=== PATIENT | female | born 1955 | race Caucasian/White ===

== ENCOUNTER 2022-10-13 12:05 | Outpatient (RCR) | payer MEDICARE, BC, SELFPAY ==
[2022-10-13 15:34] VITALS: BP 133/28; PULSE 86; RESP 16; O2SAT 98
--- NOTE | 2022-10-13 15:37 | PC.NURSE ---
Pt arrived for dressing change to left axilla, alert and oriented. Stated she has recently went to [facility] for care. Pt was able to undress and place on an gown, laying in bed. Dressing removed, gauze secured with tape. Small piece of packing ribbon noted on gauze with light yellow purulent drainage. Cleansed site with saline and pat dry. Surrounding tissue is dry and intact, firm, tender. Using cotton tip applicator, packed wound with 1/4 inch tape 1.5 inches in length. Pt tolerated with minimal pressure reported. Secured with gauze and tape. Pt dressed self and security assisted via wheel chair for discharge.
[2022-10-14 13:10] VITALS: BP 112/68; PULSE 88; RESP 18; TEMP 36.8; O2SAT 90
== END 2022-10-14 14:00 | disposition home or self-care (01) ==
LOC: INF 12:05
PROVIDERS: PCP Family Medicine
DX: L02.419 Cutaneous abscess of limb, unspecified (principal); N61.0 Mastitis without abscess

== ENCOUNTER 2022-10-22 11:00 | Outpatient (RCR) | payer MEDICARE, BC, SELFPAY ==
[2022-10-15 12:50] VITALS: BP 154/77; PULSE 85; RESP 20; TEMP 36.8; O2SAT 92
--- NOTE | 2022-10-15 13:51 | PC.NURSE ---
1250: Pt. brought to [facility] via w/c per. security personnel. Assisted pt. to bed. Relays having bad hips and unable to walk far distances. Privacy provided. Shirt and bra removed. Dressing to left outer breast in place and soiled with mod. amount serous drainage. Dressing removed. Skin red and tender around packed wound. Approximately 1.5 serous covered packing removed from wound. Wound irrigated with saline. Using sterile technique, wound packed with approximately 1.5 sterile 1 dry gauze packing. Pt. tolerated with minimal c/o discomfort. 4x4 applied and secured with paper tape. 1319: Assisted pt. back to w/c. Pt. taken to car per. volunteer and d/c'd to home.
[2022-10-16 12:42] VITALS: BP 112/66; PULSE 89; RESP 20; TEMP 36.7; O2SAT 92
--- NOTE | 2022-10-16 12:42 | PC.NURSE ---
1242: Pt. to [facility] via w/c accompanied by volunteer. Assisted to bed. Dressing to left lat. breast with mod. amount serous drainage. Old dressing removed. Packing to wound removed. Saturated with serous, yellow/pale green drainage. Wound depth re-measured at 5cm. Wound bed flushed with saline. Using sterile technique, wound packed 1 plain packing. Pt. tolerated with minimal c/o discomfort. Covered with sterile 4x4, secured with paper tape. Pt. denies needs. Pt. taken to car via w/c per this RN. D/c'd to home.
[2022-10-17 13:10] VITALS: BP 146/73; PULSE 85; RESP 20; TEMP 36.3; O2SAT 92
--- NOTE | 2022-10-17 13:10 | PC.NURSE ---
Pt. brought to [facility] via w/c from car per this RN. Pt. assisted on to bed. Dressing to left lat. breast covered with serous drainage. Dressing and 2.5 of packing removed. Packing with same drainage. Depth of wound unchanged. Site flushed with saline. Using sterile technique, wound packed with 1 plain packing and covered with sterile 4x4 and secured with paper tape. Pt. tolerated with minimal c/o. Pt. taken back to car via w/c per this RN and d/c'd to home.
[2022-10-18 14:00] VITALS: BP 135/68; PULSE 83; RESP 22; TEMP 36.6; O2SAT 91
--- NOTE | 2022-10-18 14:00 | PC.NURSE ---
Pt. brought to [facility] via w/c from car. Assisted on to bed. Dressing to left lateral breast with moderate amount of yellow/pale green drainage noted. Dressing and packing removed. Packing with same drainage. Wound bed cont. to measure at depth of 2 inches and 1cm in diameter. Using sterile technique, approximately 3 inches of 1/4 plain packing gauze inserted into wound after cleansing and irrigating wound with saline. Covered with sterile 4x4 and secured with paper tape. Site around wound hard to touch and pink/red in color. Pt. c/o discomfort only with packing wound. No pain relayed otherwise. VSS. Pt. taken back to car via w/c per this RN. Cont. to instruct pt. to keep clean and dry, pt. relays understanding.
[2022-10-19 13:04] VITALS: BP 114/76; PULSE 84; RESP 20; TEMP 36.6; O2SAT 92
[2022-10-20 13:18] VITALS: BP 136/85; PULSE 91; RESP 20; TEMP 36.8; O2SAT 93
--- NOTE | 2022-10-20 13:39 | PC.NURSE ---
pt arrived via wheelchair. assisted into bed, vs obtained. dressing change completed to L Lat breast. old packing removed with small amount of yellow drainage present. surrounding tissue pink, intact, well defined wound edges. no odor. wound cleansed with ns and re-packed with 1/4 packing. covered with sterile 4x4 and secured with paper tape. pt tolerated well. assisted into wheelchair and taken to exit.
[2022-10-21 13:31] VITALS: BP 115/94; PULSE 92; RESP 20; TEMP 36.6; O2SAT 97
--- NOTE | 2022-10-21 13:32 | PC.NURSE ---
arrived via wheelchair from private vehicle. vs obtained, remained in wc for dressing change. packing removed, yellow drainage noted. no odor. wound edges well defined, no redness. pt c/o being tender where tape is on skin. cleansed with ns, packing re-applied. covered with 4x4 and paper tape. pt tolerated well. taken to exit via wheelchair, discharged to vehicle.
[2022-10-22 15:00] VITALS: PULSE 87; RESP 18; TEMP 36.6; O2SAT 94
== END 2022-10-22 23:59 | disposition home or self-care (01) ==
LOC: INF 11:00
PROVIDERS: PCP Family Medicine; Visit Provider Family Medicine
DX: L02.419 Cutaneous abscess of limb, unspecified (principal); N61.0 Mastitis without abscess; Z48.00 Encounter for change or removal of nonsurgical wound dressing

== ENCOUNTER 2022-11-07 07:40 | Outpatient (RCR) | payer MEDICARE, BC, SELFPAY ==
[2022-10-23 13:55] VITALS: BP 101/73; PULSE 88; RESP 20; TEMP 36.9; O2SAT 92
--- NOTE | 2022-10-23 14:19 | PC.NURSE ---
1355: Pt to [facility] via w/c accompanied by son. Assisted to bed. Shirt removed. Dressing to left lat. breast with mod. amount serous drainage. Dressing removed. Packing in wound saturated with yellow/pale green exudate. Packing removed. Using sterile technique, wound packed with approximately 3.5 of 1 plain packing after flushing site several times with saline. Covered with sterile folded 4x4. Pt. tolerated with minimal c/o. Depth of wound 2 inches and 1 cm diameter. 1415: Pt. d/c'd to home with son via w/c.
[2022-10-25 13:45] VITALS: BP 117/65; PULSE 92; RESP 20; TEMP 36.9; O2SAT 93
--- NOTE | 2022-10-25 13:45 | PC.NURSE ---
Pt. retrieved from car via w/c per this RN. Assisted to bed in [facility]. Old dressing from left lateral breast removed. Packing and dressing with moderate amount purulent drainage observed. Depth measured slightly less than 2 with diameter of 1 cm. Wound cleansed with saline. Approximately 4 1 plain packing inserted into wound using sterile technique. Pt. tolerated with minimal c/o pain. Site covered and secured with folded 4x4 and paper tape. Assisted back into w/c. Taken to car via w/c per this RN. Pt. denies c/o. D/c'd to home.
[2022-10-26 13:05] VITALS: BP 121/75; PULSE 88; RESP 20; TEMP 36.3; O2SAT 91
--- NOTE | 2022-10-26 13:05 | PC.NURSE ---
Pt. retrieved from car via w/c per this RN. Brought to [facility]. Assisted to bed. VSS. Dressing to left lat. breast and packing in wound, saturated in light yellow/pale green drainage. dressing and packing removed. No change in measurements. Wound flushed and cleaned with saline. Dressing changed using sterile technique. Packed with approximately 4.5 plain packing. Covered with sterile folded 4x4, secured with paper tape. Pt. tolerates with min. c/o discomfort. Assisted with getting dressed. Pt. taken back to car via w/c per this RN and d/c'd to home.
[2022-10-29 13:04] VITALS: BP 142/71; PULSE 77; RESP 20; TEMP 36.3; O2SAT 95
--- NOTE | 2022-10-29 13:04 | PC.NURSE ---
Pt. brought to [facility] via w/c from car per Stefanie Rueda. Assisted to bed. Old dressing from left lateral breast in place covered with mod. amount purulent drainage. Dressing removed. Packing from wound removed and drainage purulent with flecks of blood. Wound flushed and cleansed with saline. Using sterile technique, wound packed with 1 plain packing approximately 4 . Covered with sterile folded 4x4 and secured with paper tape. Pt. tolerated with minimal c/o. VSS. Pt. taken to car per. STEFANIE Rueda. D/c'd to home.
[2022-10-30 14:00] VITALS: BP 133/67; PULSE 85; RESP 18; O2SAT 93
[2022-10-31 14:08] VITALS: BP 145/80; PULSE 93; RESP 16; TEMP 36.2; O2SAT 95
--- NOTE | 2022-10-31 14:22 | PC.NURSE ---
1440 Old dressing removed from area below axilla, nugauze packing removed, m=noted moderate amount of yellow/green purulent drainage. Irrigated wound with ns, cleansed surrounding area with soap and water repacked wound with approx 6 inches of 1/4 nugauze, surrounding skin reddened and indurated, actual wound opening approx size of the end of a cotton tipped applicator, approx 3 mg, wound depth straight in from opening of wound approx 4.5 cm deep. covered with 4x4 and secured with paper tape. skin prep applied to intact skin around wound prior to final dressing
[2022-11-01 13:59] VITALS: BP 150/62; PULSE 76; RESP 20; TEMP 37.1; O2SAT 91
--- NOTE | 2022-11-01 13:59 | PC.NURSE ---
Pt. to [facility] via w/c. Pt. to bed. Dressing to left lateral chest wall removed. Packing from wound removed. Both with moderate amount purulent drainage observed. Wound irrigated and cleansed with saline. Packed with approx. 7-8 1/4 plain packing. Pt. tolerates with min. c/o pain. VSS. Pt. taken to car via w/c per this RN. D/c'd to home.
[2022-11-02 14:50] VITALS: BP 145/76; PULSE 84; RESP 20; O2SAT 95
--- NOTE | 2022-11-04 13:25 | PC.NURSE ---
Patient arrived for dressing change and told real estate underwriter that she thinks this would be her last visit for [facility] dressing changes. She doesnt think she needs them anymore and wants to just put gauze and tape over the wound herself from here on out. Physician Practice Administrator explained sheshould come back tomorrow and see the normal nurses who change her dressing and see if they can contact the doctor providing these orders for possible new orders. Physician Practice Administrator then took patient to change dressing and showed the patient the drainage that was still coming from her wound and explained that this would reinfect if she didnt continue coming for packing and expressed again the importance of continuing to come for dressing changes. Patient states she would, but with much hesitation.
[2022-11-05 10:00] VITALS: BP 141/90; PULSE 82; RESP 18; TEMP 36.4; O2SAT 96
--- NOTE | 2022-11-05 10:40 | PC.NURSE ---
1000 Arrived per w/c, patient transferred to bed per self. Outer dressing fell off while showering today. Wound locatated left mid axillary line approx 4 inches below axilla.removed approx 3 inches of 1/4 nugauze dressing with purulent green/yellow noted on old nugauze. irrigated with NSS. wound is less than 2 mm opening repacked with 1/4 inch nugauze, noted 2 small blisters posterior to wound oppening approx 2 inches posterior to wound, cleased skin surrounding wound with soap anad water, skin prep applied. to intact areas. small tegaderm applied over the two small blisters. will observe. wound opeing covered with 4x4 and secured with minimal tape. 1015 released per w/c
[2022-11-07 13:10] VITALS: PULSE 81; RESP 16; TEMP 36.6; O2SAT 99
--- NOTE | 2022-11-07 14:34 | PC.NURSE ---
Outer dressing removed form left axillary, approx 2 inches of 1/4 nugauze with purulent freen yellow drainage noted. irrigated with nss. opening to wound approx 2mm in diameter. probing wound approx 4 cm tunneling at 11:00 position. repacked with with 1/4 nugauze. covered with 4x4, secured with tape. noted one of 2 small blisters healded, tegaderm removed, but has another small blister anterior to this area, tegaderm applied. fax sent to dr. Camarena and Dr. Valdovinos regarding wound assessment
[2022-11-08 13:20] VITALS: BP 138/64; PULSE 68; RESP 20; TEMP 36.6; O2SAT 97
--- NOTE | 2022-11-08 13:20 | PC.NURSE ---
Pt. in for daily dressing change. Old dressing and packing removed from left lat. breast. Both with bloody, purulent drainage. Measurements documented. Using sterile technique, wound packed with approximately 6 plain packing, covered with folded 4x4 and secured with paper tape. Pt. with existing opsite dressings covering 2 blood blisters. Pt. tolerated with minimal c/o. Pt. taken out to car via w/c and pt. d/c'd to home.
[2022-11-09 14:02] VITALS: BP 145/73; PULSE 70; RESP 20; TEMP 37.7; O2SAT 94
--- NOTE | 2022-11-09 14:02 | PC.NURSE ---
Pt. to [facility] via w/c. Transfers self to bed. Dressing changed at this time using sterile technique. Pt. c/o slight pain with packing. Several small fluid filled blisters observed around periphery of wound. Instructed pt. to leave bra off due to rubbing skin and potentially causing blisters. Pt. relays discouragement with wound healing process. Positive reinforcement given. Pt. taken to car via w/c, d/c'd to home.
[2022-11-10 13:00] VITALS: BP 151/76; PULSE 80; RESP 20; TEMP 36.8; O2SAT 95
[2022-11-11 13:48] VITALS: BP 143/82; PULSE 69; RESP 18; TEMP 36.5; O2SAT 94
[2022-11-13 13:58] VITALS: BP 123/86; PULSE 95; RESP 16; TEMP 36.1; O2SAT 99
== END 2022-11-22 23:59 | disposition home or self-care (01) ==
LOC: INF 07:40
PROVIDERS: PCP Family Medicine
DX: S41.102A Unspecified open wound of left upper arm, initial encounter (principal)

== ENCOUNTER 2023-07-08 14:36 | Outpatient (OUT) | payer MEDICARE, BC, SELFPAY ==
[2023-07-08 15:17] LABS: Basophils Absolute Auto 0.1 10^3/uL (0.0-0.1); Basophils Percent Auto 0.9 % (0.2-2.0); Eosinophils Absolute Auto 0.1 10^3/uL (0.0-0.7); Eosinophils Percent Auto 1.1 % (0.9-7.0); Hematocrit 44.5 % (36.0-48.0); Hemoglobin 13.8 g/dL (12.0-16.0); Immature Granulocytes Abs Auto 0.02 10^3/uL (0.00-0.03); Immature Granulocytes Pct Auto 0.3 % (0.0-0.5); Lymphocytes Absolute Auto 1.1 10^3/uL (1.2-3.8); Mean Corpuscular Hemoglobin 28.9 pg (26.7-34.0); Mean Corpuscular Volume 93.1 fL (81.0-99.0); Mean Platelet Volume 9.8 fL (9.5-13.5); Monocytes Absolute Auto 0.8 10^3/uL (0.3-0.8); Monocytes Percent Auto 11.3 % (1.7-12.0); Neutrophils Percent Auto 71.4 % (43.0-75.0); Platelet Count 190 10^3/uL (150-450); Red Blood Count 4.78 10^6/uL (4.20-5.40); Red Cell Distribution Width 13.2 % (11.0-15.0)
== END 2023-07-08 14:37 | disposition home or self-care (01) ==
LOC: LAB 14:36
PROVIDERS: PCP Family Medicine; Visit Provider Internal Medicine
DX: C50.919 Malignant neoplasm of unspecified site of unspecified female breast (principal)
CPT/HCPCS: 36415; 85025; 86300

== ENCOUNTER 2023-11-07 12:49 | Outpatient (OUT) | payer MEDICARE, BC, SELFPAY ==
[2023-11-07] MEDS: ALBUTEROL SULFATE 2.5 MG/3 ML VIAL NEB IH (14:30)
--- NOTE | 2023-11-07 14:31 | RT_ITS ---
[facility] Test Date: 2023-11-07 Pat Name: JOYCE HUERTA Department: Room: - Gender: Female School Aide: Lavell Lizarraga RRT : 1955 Requested By: [id number] Order Number: [id number] Yanira MD: Jason Becerra Interpretive Statements Pulmonary function testing was completed according to ATS criteria. Findings were considered accurate and reproducible, with exception of DLCO which did not meet ATS standards. Both pre- and post-bronchodilator values utilized for spirometry. Spirometry (based on pre-bronchodilator values): -FEV1/FVC: Reduced @ 35% -FEV1: Very severely reduced @ 26% -FVC: Reduced @ 57% -MHH05-46%: Reduced @ 11% -There is a positive bronchodilator response in FVC. Lung volumes by plethysmography (based on pre-bronchodilator values): -RV: Increased @ 217% -TLC: Increased @ 132% Diffusion capacity: -DLCO: Moderate reduction @ 57% when corrected for Hb 14g/dL. Flow-volume loop: -Very severe obstructive pattern Impressions: Spirometry suggests very severe obstruction. There is a positive bronchodilator response in FVC. An elevated RV and TLC suggest air trapping and hyperinflation respectively. There is a moderately reduced diffusion capacity. Overall study is compatible with COPD/emphysema. Clinical correlation required. Electronically Signed On 11-12-2023 7:31:11 EDT by Jason Becerra
== END 2023-11-07 12:50 | disposition home or self-care (01) ==
LOC: CARD 12:49
PROVIDERS: PCP Family Medicine; Visit Provider Internal Medicine
DX: C50.919 Malignant neoplasm of unspecified site of unspecified female breast (principal)
CPT/HCPCS: 94060; 94726; 94729

== ENCOUNTER 2024-03-09 16:12 | Outpatient (OUT) | payer MEDICARE, SELFPAY ==
[2024-03-09 17:03] LABS: Bilirubin Urine NEGATIVE (NEGATIVE); Blood Urine SMALL (NEGATIVE); Clarity Urine CLEAR (CLEAR); Color Urine YELLOW (YELLOW); Glucose Urine UA NEGATIVE (NEGATIVE); Ketones Urine NEGATIVE (NEGATIVE); Leukocyte Esterase Urine SMALL (NEGATIVE); Nitrite Urine POSITIVE (NEGATIVE); Protein Urine 30 mg/dL (NEG/TRACE)
[2024-03-09 17:23] LABS: Amphetamine Screen Urine NEGATIVE (NEGATIVE); Barbiturates Screen Urine NEGATIVE (NEGATIVE); Benzodiazepines Screen Urine NEGATIVE (NEGATIVE); Cannabinoid Screen Urine POSITIVE (NEGATIVE); Cocaine Screen Urine NEGATIVE (NEGATIVE); Methadone Screen Urine NEGATIVE (NEGATIVE); Methamphetamines Screen Urine NEGATIVE (NEGATIVE); Opiate Screen Urine POSITIVE (NEGATIVE); Oxycodone Screen Urine NEGATIVE (NEGATIVE); Phencyclidine Screen Urine NEGATIVE (NEGATIVE); Tricyclic Antidepressant Urine NEGATIVE (NEGATIVE)
[2024-03-09 17:24] LABS: Buprenorphine Screen Urine NEGATIVE (NEGATIVE)
== END 2024-03-09 16:13 | disposition home or self-care (01) ==
LOC: LAB 16:14
PROVIDERS: PCP Family Medicine; Visit Provider Family Medicine
DX: Z02.89 Encounter for other administrative examinations (principal); Z79.899 Other long term (current) drug therapy; R31.9 Hematuria, unspecified
CPT/HCPCS: 80307; 81003; 87086; 87150